=== PATIENT | female | born 1990 | race African-American/Black ===

== ENCOUNTER 2017-05-23 13:31 | Emergency (ER) | payer MEDICAID, OTHER ==
[~2017-05-23] VITALS: Ht 160 cm; Wt 72.6 kg
[2017-05-23 13:40] VITALS: BP 99/64
[2017-05-23] MEDS ORDERED: CEPHALEXIN500 MG ORAL (14:39)
[2017-05-23] MEDS ORDERED: BACTRIM DS TAB1 EAC1 ORAL (14:39)
[2017-05-23 14:43] VITALS: BP 99/64
--- NOTE | 2017-05-23 19:07 | Emergency Room Report ---
History of Present Illness General Chief Complaint: General Complaint Source: Patient Present Illness HPI The patient is a 27 old female presenting for pain. She states that she noticed pain around the tailbone approximately 3 days ago. Described as an 8/ 10 dull ache it is worse with sitting down. She denies any radiating pain. She denies any constipation or diarrhea or straining. She denies any injury to the area. She states that she frequently gets ingrown hairs with infections around the groin and this feels similar. She denies any other symptoms including nausea, vomiting, fever, chills Patient History Past Medical History: see triage record Pertinent Family History: none Last Menstrual Period: 04/26/17 Now: No - UNKNOWN Reviewed Nursing Documentation: PMH: Agreed, PSxH: Agreed Nursing Documentation-PMH Hx Cardiac Problems: No Hx Hypertension: No Hx Pacemaker: No Hx Asthma: No Hx COPD: No Hx Diabetes: No Hx Cancer: No Hx Gastrointestinal Problems: No Hx Dialysis: No History Of Psychiatric Problem: No Hx Neurological Problems: No Hx Cerebrovascular Accident: No Hx Seizures: No Review of Systems All Other Systems: negative except mentioned in HPI Physical Exam Vital Signs Date Time Temp Pulse Resp B/P (MAP) Pulse Ox O2 Delivery O2 Flow Rate FiO2 05/23/17 13:36 98.6 80 18 99/64 98 05/23/17 13:40 Room Air Sp02 EP Interpretation: reviewed, normal General Appearance: no apparent distress, alert, GCS 15, non-toxic Head: normocephalic, atraumatic Eyes: bilateral eye normal inspection, bilateral eye PERRL ENT: hearing grossly normal, normal pharynx, no angioedema, normal voice Neck: full range of motion, supple/symm/no masses Musculoskeletal: back normal, gait/station normal, normal range of motion, non- tender Neurologic: alert, oriented x3, responsive, motor strength/tone normal, sensory intact, speech normal Psychiatric: judgement/insight normal, memory normal, mood/affect normal, no suicidal/homicidal ideation Skin: normal color, warm/dry, well hydrated, other - 1cm nodular lesion at superior aspect of gluteal cleft. Tender. Mobile. No erythema Lymphatic: no adenopathy Medical Decision Making PA Attestation Dr. Du is my supervising physician. Patient management was discussed with my supervising physician Diagnostic Impression: Primary Impression: Abscess ER Course The patient is a 27 old female presenting for pain. Differential diagnoses considered but not limited to: abscess, cellulitis, insect bite, among others PE: Afebrile. NAD 1cm nodular lesion at superior aspect of gluteal cleft. Tender. Indurated. Mobile. No erythema. No midline tenderness or step-offs. Full active range of motion is intact. Normal gait The patient is discharged home a prescription for antibiotics and pain medication and will followup with her primary doctor. She is given indications to return. Last Vital Signs Date Time Temp Pulse Resp B/P (MAP) Pulse Ox O2 Delivery O2 Flow Rate FiO2 05/23/17 14:43 98.6 72 18 99/64 98 Room Air Status: improved Disposition: HOME, SELF-CARE Condition: Improved Scripts Trimethoprim/Sulfamethoxazole 160/800* (BACTRIM DS TABLET*) 1 Each Tablet 1 TAB ORAL TWICE A DAY, #14 TAB Prov: JACINTO PHELAN 05/23/17 Cephalexin* (KEFLEX*) 500 Mg Capsule 500 MG ORAL EVERY 12 HOURS, #14 CAP 0 Refills Prov: JACINTO PHELAN 05/23/17 Referrals: [employer] [facility],REFERRIN (PCP) Patient Instructions: Abscess Additional Instructions: I discussed my findings with the patient. All questions and concerns have been answered. Treatment and medication compliance have been addressed. I advised the patient that they need to follow up with PMD in 3-5 days. Return to ED if symptoms worsen, new symptoms arise, or if needed for any reason. Patient verbalized understanding of discharge instructions. JACINTO PHELAN May 23, 2017 19:07
== END 2017-05-23 15:22 | disposition home or self-care (01) ==
LOC: EMR 14:00
DX: L02.31 Cutaneous abscess of buttock (principal)
CPT/HCPCS: 81025; 99284

== ENCOUNTER 2017-05-25 10:04 | Emergency (ER) | payer OTHER ==
[~2017-05-25] VITALS: Ht 160 cm; Wt 73.0 kg
[~2017-05-25 10:04] MED LIST: BACTRIM DS TAB1 EAC1 ORAL; CEPHALEXIN500 MG ORAL
[2017-05-25] MEDS ORDERED: Ampicillin/Sulbactam Sod 3 GM in NS 110 ML IVPB ONE (10:30)
[2017-05-25] MEDS ORDERED: Morphine Sulfate 4mg/ml Inj IVP ONE (10:30)
[2017-05-25 10:47] LABS: MEAN CORPUSCULAR HEMOGLOBIN 29.2 PG (27.0-31.0); MEAN CORPUSCULAR HGB CONC 33.4 G/DL (32.0-36.0); MEAN CORPUSCULAR VOLUME 87 FL (80-99); MEAN PLATELET VOLUME 8.8 FL (6.5-10.1); PLATELET COUNT 303 K/UL (150-450); RED BLOOD COUNT 4.82 M/UL (4.20-5.40); RED CELL DISTRIBUTION WIDTH 11.5 % (11.6-14.8); WHITE BLOOD COUNT 19.4 K/UL (4.8-10.8)
[2017-05-25 10:56] LABS: ANION GAP 9 mmol/L (5-15); CALCIUM 8.8 MG/DL (8.5-10.1); CARBON DIOXIDE 24 MMOL/L (21-32); CHLORIDE 104 MMOL/L (98-107); CREATININE 0.9 MG/DL (0.55-1.30); GLOMERULAR FILTRATION RATE > 60 mL/min (>60); POTASSIUM 4.1 MMOL/L (3.5-5.1); SODIUM 137 MMOL/L (136-145)
[2017-05-25 11:03] LABS: ALANINE AMINOTRANSFERASE 19 U/L (12-78); ALBUMIN/GLOBULIN RATIO 0.6 (1.0-2.7); ASPARTATE AMINO TRANSFERASE 17 U/L (15-37); TOTAL PROTEIN 8.3 G/DL (6.4-8.2)
[2017-05-25] MEDS ORDERED: Unasyn 3gm Inj ONE (11:11)
[2017-05-25 11:13] LABS: LYMPHOCYTES % (MANUAL) 13 % (20-45); NEUTROPHILS % (MANUAL) 82 % (45-75); TOTAL CELLS COUNTED 100
[2017-05-25 11:14] LABS: BAND NEUTROPHILS % (MANUAL) 0 % (0-8); BASOPHILS % (MANUAL) 0 % (0-2); EOSINOPHILS % (MANUAL) 0 % (0-3); PLATELET ESTIMATE ADEQUATE; PLATELET MORPHOLOGY NORMAL
[2017-05-25] MEDS ORDERED: Lidocaine 1% 10mg/ml/EPI 0.01mg/ml 50ml INJ ONE (11:53)
[2017-05-25] MEDS ORDERED: Ketorolac 30mg Inj IV ONE (12:00)
[2017-05-25] MEDS ORDERED: NORCO 5-325 TA1 EACH ORAL (13:46)
[2017-05-25 13:55] VITALS: BP 110/78
--- NOTE | 2017-05-25 14:47 | Emergency Room Report ---
History of Present Illness General Chief Complaint: Skin Rash/Abscess Source: Patient Present Illness HPI Patient is a 27-year-old female presented after increased a right buttock pain and swelling. The patient had been having several days of increased pain to the tailbone buttock area. She denies prior history of abscess or diabetes. She reports having subjective fever. She had been taking Bactrim and Keflex. Allergies: Coded Allergies: No Known Allergies (Unverified , 05/25/17) Patient History Last Menstrual Period: 04/26/17 Reviewed Nursing Documentation: PMH: Agreed, PSxH: Agreed Nursing Documentation-PMH Past Medical History: No Stated History Hx Cardiac Problems: No Hx Hypertension: No Hx Pacemaker: No Hx Asthma: No Hx COPD: No Hx Diabetes: No Hx Cancer: No Hx Gastrointestinal Problems: No Hx Dialysis: No Hx Neurological Problems: No Hx Cerebrovascular Accident: No Hx Seizures: No Review of Systems All Other Systems: negative except mentioned in HPI Physical Exam Vital Signs Date Time Temp Pulse Resp B/P (MAP) Pulse Ox O2 Delivery O2 Flow Rate FiO2 05/25/17 10:05 100.0 95 18 96/67 98 Room Air Sp02 EP Interpretation: reviewed, normal General Appearance: normal inspection, well appearing, no apparent distress, alert, GCS 15 Head: atraumatic ENT: normal ENT inspection, hearing grossly normal, normal voice Neck: normal inspection, full range of motion, supple, no bony tend Respiratory: normal inspection, lungs clear, normal breath sounds, no respiratory distress, no retraction, no wheezing Cardiovascular #1: regular rate, rhythm, no edema Gastrointestinal: normal inspection, normal bowel sounds, non tender, soft, no guarding, no hernia Genitourinary: no CVA tenderness Musculoskeletal: normal inspection, back normal, normal range of motion Neurologic: normal inspection, alert, responsive, speech normal Psychiatric: normal inspection, judgement/insight normal, mood/affect normal Skin: no rash, other - buttock abscess right side Procedures Incision and Drainage Incision and Drainage : Site: buttock Blade Size: 11 I & D Procedure: betadine prep, sterile drapes applied Wound Location: other - buttock Wound's Depth, Shape: superficial Wound Length (cm): 1 Anesthesia: Lidocaine w/ Epi Volume Anesthetic (ccs): 5 Patient Tolerated: Well Complications: None Medical Decision Making Diagnostic Impression: Primary Impression: Skin abscess ER Course Patient presented for skin rash. Differential diagnosis included was not limited to abscess, cellulitis, folliculitis, Fourniere's gangrene. Because of complexity of patient's case laboratory testing and imaging studies were ordered. laboratory studies testing was notable for elevated white blood count. Patient was given IV pain medications. The abscess was incised and drained with moderate amount of purulent drainage. The patient is advised to follow up with primary care doctor in 2 days. Patient is advised to return if any worsening condition or if any changes in status that are concerning. Last Vital Signs Date Time Temp Pulse Resp B/P (MAP) Pulse Ox O2 Delivery O2 Flow Rate FiO2 05/25/17 13:55 84 16 110/78 97 Room Air 05/25/17 13:55 97.5 Status: improved Disposition: HOME, SELF-CARE Condition: Stable Scripts Hydrocodone Bit/Acetaminophen 5-325* (NORCO 5-325*) 1 Each Tablet 1 TAB ORAL Q6H Y for For Pain, #10 TAB 0 Refills Prov: Merrill Ritchie 05/25/17 Patient Instructions: Abscess Merrill Ritchie May 25, 2017 14:47
== END 2017-05-25 13:55 | disposition home or self-care (01) ==
LOC: EMR 10:41
DX: L02.31 Cutaneous abscess of buttock (principal)
CPT/HCPCS: 10060; 36415; 80053; 85007; 85025; 96361; 96365; 96375; 99284; J0295; J1885; J2270; J2405